=== PATIENT | female | born 1995 | race African-American/Black ===

== ENCOUNTER 2017-06-01 13:41 | Emergency (ER) | payer BC, OTHER ==
[~2017-06-01] VITALS: Ht 160 cm; Wt 61.2 kg
[2017-06-01 15:06] LABS: HEMATOCRIT 37.2 % (37.0-47.0); HEMOGLOBIN 12.4 gm/dL (12.0-15.0); MCH 29.5 pg (26.0-34.0); MCHC 33.4 g/dL (28.0-37.0); MCV 88.3 fL (80.0-100.0); RBC 4.21 mil/uL (4.20-5.00); RDW 15.6 % (10.5-14.5); WBC 9.4 thou/uL (4.0-11.0)
[2017-06-01 15:10] LABS: CALCIUM 9.8 mg/dL (8.5-10.1); CREATININE 0.7 mg/dL (0.6-1.0); POTASSIUM 3.5 mmol/L (3.5-5.1)
[2017-06-01] MEDS ORDERED: ONDANSETRON HCL4 M2 PO (15:30)
[2017-06-01 15:34] LABS: URINE BLOOD TRACE (Negative); URINE CLARITY CLEAR; URINE COLOR YELLOW; URINE GLUCOSE-RANDOM* NEGATIVE (Negative); URINE KETONES 3+ (Negative); URINE LEUKOCYTES NEGATIVE (Negative); URINE NITRITE NEGATIVE (Negative); URINE PROTEIN (DIPSTICK) TRACE (Negative); URINE SPECIFIC GRAVITY >= 1.030 (1.005-1.035)
[2017-06-01] MEDS ORDERED: FLAGYL500 MG PO (15:34)
[2017-06-01 15:40] LABS: URINE BILIRUBIN NEGATIVE (Negative)
[2017-06-01] MEDS ORDERED: ZOFRAN ODT4 MG PO (15:46)
== END 2017-06-01 15:45 | disposition home or self-care (01) ==
LOC: ER 13:41
PROVIDERS: Physician Assistant
DX: O23.591 Infection of other part of genital tract in pregnancy, first trimester (principal); O21.9 Vomiting of pregnancy, unspecified; Z3A.12 12 weeks gestation of pregnancy